=== PATIENT | male | born 2000 | race Hispanic/Latino ===

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

== ENCOUNTER 2021-05-04 20:30 | Observation (INO) | payer OTHER ==
[~2021-05-04] VITALS: Ht 172.7 cm; Wt 94.0 kg
[2021-05-04 21:19] LABS: HEMATOCRIT 48.1 % (39.0-50.0); HEMOGLOBIN 16.5 g/dl (14.0-18.0); IMMATURE GRANULOCYTES 0.3 % (0.0-5.0); MEAN CELL VOLUME 82.9 fL CALC (80.0-100.0); MEAN CORPUSCULAR HGB 28.4 pG CALC (26.0-32.0); MEAN CORPUSCULAR HGB CONC 34.3 g/dL CAL (32.0-36.0); NEUT# 5.23 thou/uL (1.82-7.42); RED BLOOD COUNT 5.8 mill/uL (4.70-6.10); RED CELL DISTRI WIDTH 12.4 % (11.5-15.5)
[2021-05-04 21:36] LABS: ALBUMIN 4.3 g/dL (3.2-5.0); ALKALINE PHOSPHATASE 84 u/l (38-126); ANION GAP 16 (6-22 (CALC)); BUN 6 mg/dL (9-20); BUN/CREATININE RATIO 9 (12-20 (CALC)); CARBON DIOXIDE 24 mmol/l (22-30); CHLORIDE 97 mmol/l (95-108); CREATININE 0.7 mg/dL (0.7-1.3); GFR > 60 ML/MIN (>=60 (CALC)); GFR FOR AFR.AMER. > 60 ML/MIN (>=60 (CALC)); POTASSIUM 3.6 mmol/l (3.5-5.1); SODIUM 133 mmol/l (137-146); TOTAL PROTEIN 7.6 g/dL (6.3-8.2)
[2021-05-04 21:39] LABS: BILIRUBIN, TOTAL 1.1 mg/dL (0.0-1.4); SGOT/AST 88 u/l (17-59)
[2021-05-05] MEDS ORDERED: TYLENOL500 MG PO (00:18)
[2021-05-05 00:30] VITALS: BP 126/67
[2021-05-05 04:55] VITALS: BP 131/71
[2021-05-05 06:25] LABS: HEMATOCRIT 45.4 % (39.0-50.0); IMMATURE GRANULOCYTES 0.6 % (0.0-5.0); MEAN CORPUSCULAR HGB 28.1 pG CALC (26.0-32.0); NEUT# 1.99 thou/uL (1.82-7.42); RED BLOOD COUNT 5.34 mill/uL (4.70-6.10); RED CELL DISTRI WIDTH 12.5 % (11.5-15.5)
[2021-05-05 06:45] LABS: ALBUMIN 3.7 g/dL (3.2-5.0); ALKALINE PHOSPHATASE 67 u/l (38-126); ANION GAP 14 (6-22 (CALC)); BUN 6 mg/dL (9-20); BUN/CREATININE RATIO 9 (12-20 (CALC)); C-REACTIVE PROTEIN 6.2 mg/dL (0-0.9); CARBON DIOXIDE 24 mmol/l (22-30); CHLORIDE 104 mmol/l (95-108); CREATININE 0.6 mg/dL (0.7-1.3); GFR > 60 ML/MIN (>=60 (CALC)); GFR FOR AFR.AMER. > 60 ML/MIN (>=60 (CALC)); POTASSIUM 4.3 mmol/l (3.5-5.1); SGOT/AST 69 u/l (17-59); SODIUM 138 mmol/l (137-146); TOTAL PROTEIN 6.8 g/dL (6.3-8.2)
[2021-05-05 06:48] LABS: BILIRUBIN, TOTAL 0.4 mg/dL (0.0-1.4)
[2021-05-05 07:38] VITALS: BP 132/70
[2021-05-05] MEDS ORDERED: DEXAMETHASON6 MG PO (11:39)
[2021-05-05] MEDS ORDERED: ZPAK PO (11:39)
[2021-05-05] MEDS ORDERED: ZOFRAN4 MG/TAB PO (11:41)
[2021-05-05 11:52] VITALS: BP 147/93
== END 2021-05-05 14:06 | disposition home or self-care (01) | DRG 177 ==
LOC: ED 20:30 → ED-I 23:20 → ED 23:32 → MS2 23:33
PROVIDERS: Emergency Medicine; Nurse Practitioner; ADMIT Hospitalist; ATTEND Hospitalist
DX: U07.1 COVID-19 (principal); J12.82 Pneumonia due to coronavirus disease 2019
CPT/HCPCS: G0378; Q9967